=== PATIENT | female | born 1995 | race Hispanic/Latino ===

== ENCOUNTER 2018-03-15 11:42 | Emergency (ER) | payer SELFPAY ==
[2018-03-15] MEDS ORDERED: NA CHLORIDE 0.9% 1,000 ML ONE (12:06)
--- NOTE | 2018-03-15 12:12 | EKG ---
Test Date: 2018-03-15 Test Time: 12:08:11 Finisher Operator: FELI MEASUREMENT RESULTS: Intervals: Rate: 60 ME: 164 QRSD: 76 QT: 416 QTc: 416 Antoine: P: 31 ME: 164 QRS: 31 T: 18 INTERPRETIVE STATEMENTS: Normal sinus rhythm Nonspecific T wave abnormality Abnormal ECG No previous ECG available for comparison Electronically Signed On 03-15-18 12:11:25 CDT by Andrew Serna
[2018-03-15 12:33] LABS: Absolute Lymphocytes (CBC) 2.7 K/uL (0.7-4.9); Absolute Monocytes 0.3 K/uL (0.1-1.3); Absolute Neutrophil 1.9 K/uL (1.8-8.0); Basophils % 0.7 % (0-1.3); Eosinophils % 3.6 % (0-4.4); MCH 30.1 pg (27.0-35.0); MCV 87.5 fL (80-100); MPV 8.5 fL (7.6-11.3); RBC Red Blood Cell Count 4.12 M/uL (3.86-4.86)
[2018-03-15 12:51] LABS: Blood Morphology Comment NOT SEEN (NOT SEEN); Platelet Estimate ADEQ
[2018-03-15 12:55] LABS: BUN Blood Urea Nitrogen 12 mg/dL (7-18); Bicarbonate 28 mmol/L (21-32); Glucose Level 103 mg/dL (74-106); Magnesium 2.1 mg/dL (1.8-2.4); Potassium 3.1 mmol/L (3.5-5.1); Sodium Level 143 mmol/L (136-145)
--- NOTE | 2018-03-15 13:31 | ER ---
Nurse's Notes [facility] Name: Grace Galdamez Age: 22 yrs Sex: Female : 1995 Arrival Date: 03/15/2018 Time: 11:47 Bed 18 Private MD: Diagnosis: Syncope and collapse Presentation: 03/15 11:49 Presenting complaint: EMS states: She has had 2 syncopal episodes today. Patient states aj1 that she has been having these issues for months where she feels really hot, her vision gets blurry, she starts to see white spots and them passes out. EMS reports patient's SBP in the 80's on their arrival. IV was initiated by EMS and after 300cc of NS patient's BP came up to 107. FSBS 101 by EMS. Transition of care: patient was not received from another setting of care. Onset of symptoms was March 15, 2018. Risk Assessment: Do you want to hurt yourself or someone else? Patient reports no desire to harm self or others. Initial Sepsis Screen: Does the patient meet any 2 criteria? No. Patient's initial sepsis screen is negative. Does the patient have a suspected source of infection? No. Patient's initial sepsis screen is negative. Care prior to arrival: None. 11:49 Method Of Arrival: EMS: [facility] aj1 11:49 Acuity: DERICK 3 aj1 Triage Assessment: 11:51 General: Appears in no apparent distress. comfortable, Behavior is calm, cooperative, aj1 appropriate for age. Pain: Denies pain. Neuro: Reports a syncopal episode. Historical: - Allergies: 11:51 No Known Allergies; aj1 - Home Meds: 11:51 None [Active]; aj1 - PMHx: 11:51 None; aj1 - PSHx: 11:51 None; aj1 - Immunization history:: Flu vaccine is not up to date. - Social history:: Smoking status: Patient/guardian denies using tobacco. - Ebola Screening: : Patient denies travel to an Ebola-affected area in the 21 days before illness onset. Screenin:52 Abuse screen: Denies threats or abuse. Denies injuries from another. Nutritional aj1 screening: No deficits noted. Tuberculosis screening: No symptoms or risk factors identified. 14:35 Fall Risk None identified. aj1 Assessment: 11:52 General: Appears in no apparent distress. comfortable, Behavior is calm, cooperative, aj1 appropriate for age. Pain: Denies pain. Neuro: Level of Consciousness is awake, alert, obeys commands, Oriented to person, place, time, situation, Moves all extremities. Full function Speech is normal, Facial symmetry appears normal, Reports a syncopal episode. Cardiovascular: Denies chest pain, shortness of breath, Heart tones S1 S2 present Patient's skin is warm and dry. Rhythm is regular. Respiratory: Airway is patent Respiratory effort is even, unlabored, Respiratory pattern is regular, symmetrical, Breath sounds are clear bilaterally. GI: No signs and/or symptoms were reported involving the gastrointestinal system. : No signs and/or symptoms were reported regarding the genitourinary system. EENT: No signs and/or symptoms were reported regarding the EENT system. Derm: No signs and/or symptoms reported regarding the dermatologic system. Skin is pink, warm \T\ dry. normal. Musculoskeletal: No signs and/or symptoms reported regarding the musculoskeletal system. Circulation, motion, and sensation intact. 12:50 Reassessment: Patient appears in no apparent distress at this time. No changes from aj1 previously documented assessment. Patient and/or family updated on plan of care and expected duration. Pain level reassessed. Patient is alert, oriented x 3, equal unlabored respirations, skin warm/dry/pink. 13:50 Reassessment: Patient appears in no apparent distress at this time. No changes from aj1 previously documented assessment. Patient and/or family updated on plan of care and expected duration. Pain level reassessed. Patient is alert, oriented x 3, equal unlabored respirations, skin warm/dry/pink. 14:32 Reassessment: Patient appears in no apparent distress at this time. No changes from aj1 previously documented assessment. Patient and/or family updated on plan of care and expected duration. Pain level reassessed. Patient is alert, oriented x 3, equal unlabored respirations, skin warm/dry/pink. Vital Signs: 11:51 BP 135 / 95; Pulse 74; Resp 16; Temp 98.0(O); Pulse Ox 100% on R/A; Weight 58.97 kg aj1 (R); Height 5 ft. 0 in. (152.40 cm) (R); 11:51 BP 101 / 73 Supine; Pulse 67; Resp 18; Pulse Ox 99% on R/A; dh3 11:53 BP 108 / 82 Sitting; Pulse 79; Resp 18; Pulse Ox 100% on R/A; dh3 11:55 BP 108 / 78 Standing; Pulse 61; Resp 18; Pulse Ox 99% on R/A; dh3 12:45 BP 113 / 81; Pulse 66; Resp 18; Pulse Ox 99% ; aj1 13:45 BP 104 / 69; Pulse 58; Resp 18; Pulse Ox 98% ; aj1 14:34 BP 106 / 78; Pulse 61; Resp 18; Pulse Ox 99% on R/A; aj1 11:51 Body Mass Index 25.39 (58.97 kg, 152.40 cm) aj1 ED Course: 11:47 Patient arrived in ED. aj1 11:48 Alec San PA is PHCP. jr8 11:48 Marty Guillermo MD is Attending Physician. jr8 11:51 Triage completed. aj1 11:51 Arm band placed on Patient placed in an exam room. aj1 11:52 Patient has correct armband on for positive identification. Bed in low position. Call aj1 light in reach. Side rails up X 1. 11:52 No provider procedures requiring assistance completed. aj1 12:01 Lizeth Bingham, RN is Primary Nurse. aj1 12:30 EKG done, by infrastructure technician. reviewed by Alec STEWART. at1 13:30 Oni Dooley MD is Referral Physician. jr8 14:35 IV discontinued, intact, bleeding controlled, No redness/swelling at site. Pressure aj1 dressing applied. Administered Medications: 12:18 Drug: NS 0.9% 1000 ml Route: IV; Rate: 1000 ml; Site: right antecubital; aj1 13:15 Follow up: IV Status: Completed infusion; IV Intake: 1000ml aj1 14:31 Drug: Potassium Chloride 40 mEq Route: PO; aj1 14:32 Follow up: Response: No adverse reaction aj1 Intake: 13:15 IV: 1000ml; Total: 1000ml. aj1 Outcome: 13:30 Discharge ordered by . jr8 14:35 Discharged to home ambulatory. aj1 14:35 Condition: good 14:35 Discharge instructions given to patient, Instructed on discharge instructions, follow up and referral plans. Demonstrated understanding of instructions, follow-up care. 14:36 Patient left the ED. aj1 Signatures: Lizeth Bingham RN RN aj1 Alec San PA PA jr8 Fernanda chamberlain, art history professor [facility] Radha Ridley 3
--- NOTE | 2018-03-15 13:32 | EDPHYS ---
Physician Documentation [facility] Name: Grace Galdamez Age: 22 yrs Sex: Female : 1995 Arrival Date: 03/15/2018 Time: 11:47 Bed 18 Private MD: ED Physician Marty Guillermo HPI: 03/15 11:51 This 22 yrs old Female presents to ER via Unassigned with complaints of jr8 Syncope. 11:51 The patient has experienced syncope, became unresponsive, collapsed. Onset: The jr8 symptoms/episode began/occurred acutely, today. Duration: This was a single episode. Context: occurred at work. Associated injury: The patient did not suffer any apparent associated injury. Associated signs and symptoms: Pertinent positives: blurred vision, dizziness. Current symptoms: Currently, the patient is not experiencing any symptoms, the patient feels back to baseline, no decreased level of consciousness, no confusion, no dysphasia, no headache, no paralysis, no visual changes. The patient has experienced similar episodes in the past, several times. The patient has not recently seen a physician. Patient stated that she has been having syncopal episodes now for the past few months. Stated that she starts to feel hot and then becomes dizzy and has blurred vision. Shortly after will have syncopal episode. Stated that it only happens if she is active and doing something. Never has it happened at rest. Denies chest pain, palpitations, or shortness of breath before, during, or after episodes . Historical: - Allergies: 11:51 No Known Allergies; aj1 - Home Meds: 11:51 None [Active]; aj1 - PMHx: 11:51 None; aj1 - PSHx: 11:51 None; aj1 - Immunization history:: Flu vaccine is not up to date. - Social history:: Smoking status: Patient/guardian denies using tobacco. - Ebola Screening: : Patient denies travel to an Ebola-affected area in the 21 days before illness onset. ROS: 11:51 Eyes: Negative for injury, pain, redness, and discharge, ENT: Negative for injury, jr8 pain, and discharge, Neck: Negative for injury, pain, and swelling, Cardiovascular: Negative for chest pain, palpitations, and edema, Respiratory: Negative for shortness of breath, cough, wheezing, and pleuritic chest pain, Abdomen/GI: Negative for abdominal pain, nausea, vomiting, diarrhea, and constipation, Back: Negative for injury and pain, MS/Extremity: Negative for injury and deformity, Skin: Negative for injury, rash, and discoloration. 11:51 Neuro: Positive for dizziness, syncope, visual changes. Exam: 11:51 Head/Face: Normocephalic, atraumatic. Eyes: Pupils equal round and reactive to light, jr8 extra-ocular motions intact. Lids and lashes normal. Conjunctiva and sclera are non-icteric and not injected. Cornea within normal limits. Periorbital areas with no swelling, redness, or edema. ENT: Nares patent. No nasal discharge, no septal abnormalities noted. Tympanic membranes are normal and external auditory canals are clear. Oropharynx with no redness, swelling, or masses, exudates, or evidence of obstruction, uvula midline. Mucous membranes moist. Neck: Trachea midline, no thyromegaly or masses palpated, and no cervical lymphadenopathy. Supple, full range of motion without nuchal rigidity, or vertebral point tenderness. No Meningismus. Chest/axilla: Normal chest wall appearance and motion. Nontender with no deformity. No lesions are appreciated. Cardiovascular: Regular rate and rhythm with a normal S1 and S2. No gallops, murmurs, or rubs. Normal PMI, no JVD. No pulse deficits. Respiratory: Lungs have equal breath sounds bilaterally, clear to auscultation and percussion. No rales, rhonchi or wheezes noted. No increased work of breathing, no retractions or nasal flaring. Abdomen/GI: Soft, non-tender, with normal bowel sounds. No distension or tympany. No guarding or rebound. No evidence of tenderness throughout. Back: No spinal tenderness. No costovertebral tenderness. Full range of motion. Skin: Warm, dry with normal turgor. Normal color with no rashes, no lesions, and no evidence of cellulitis. MS/ Extremity: Pulses equal, no cyanosis. Neurovascular intact. Full, normal range of motion. Neuro: Awake and alert, GCS 15, oriented to person, place, time, and situation. Cranial nerves II-XII grossly intact. Motor strength 5/5 in all extremities. Sensory grossly intact. Cerebellar exam normal. Normal gait. Vital Signs: 11:51 BP 135 / 95; Pulse 74; Resp 16; Temp 98.0(O); Pulse Ox 100% on R/A; Weight 58.97 kg aj1 (R); Height 5 ft. 0 in. (152.40 cm) (R); 11:51 BP 101 / 73 Supine; Pulse 67; Resp 18; Pulse Ox 99% on R/A; dh3 11:53 BP 108 / 82 Sitting; Pulse 79; Resp 18; Pulse Ox 100% on R/A; dh3 11:55 BP 108 / 78 Standing; Pulse 61; Resp 18; Pulse Ox 99% on R/A; dh3 12:45 BP 113 / 81; Pulse 66; Resp 18; Pulse Ox 99% ; aj1 13:45 BP 104 / 69; Pulse 58; Resp 18; Pulse Ox 98% ; aj1 14:34 BP 106 / 78; Pulse 61; Resp 18; Pulse Ox 99% on R/A; aj1 11:51 Body Mass Index 25.39 (58.97 kg, 152.40 cm) [facility] MDM: 11:48 Patient medically screened. [facility] 13:30 Data reviewed: vital signs, nurses notes, lab test result(s), EKG, and as a result, I 8 will discharge patient. Data interpreted: Pulse oximetry: on room air is 99 %. Interpretation: normal. Counseling: I had a detailed discussion with the patient and/or guardian regarding: the historical points, exam findings, and any diagnostic results supporting the discharge/admit diagnosis, lab results, the need for outpatient follow up, a bilingual executive assistant, to return to the emergency department if symptoms worsen or persist or if there are any questions or concerns that arise at home. Response to treatment: the patient's symptoms have resolved after treatment, patient is well hydrated. 13:31 Differential Diagnosis: cardiac arrhythmia, drug effect, emotional response, GI bleed, jr8 idiopathic syncope, , seizure, vasovagal episode, POTS syndrome, metabolic process . 03/15 11:48 Order name: Basic Metabolic Panel [facility] 03/15 11:48 Order name: CBC with Diff [facility] 03/15 11:48 Order name: Magnesium [facility] 03/15 11:48 Order name: TSH [facility] 03/15 11:48 Order name: T4 Free [facility] 03/15 12:35 Order name: CBC with Automated Diff; Complete Time: 13:07 EDMS 03/15 11:48 Order name: EKG; Complete Time: 11:49 [facility] 03/15 12:51 Order name: Manual Differential; Complete Time: 13: [facility] 03/15 12:55 Order name: Basic Metabolic Panel; Complete Time: 13: [facility] 03/15 12:55 Order name: T4 Free; Complete Time: 13: [facility] 03/15 12:55 Order name: Magnesium; Complete Time: 13: [facility] 03/15 12:55 Order name: Thyroid Stimulating Hormone; Complete Time: 13: [facility] 03/15 11:48 Order name: Urine Test (obtain specimen); Complete Time: 14:31 [facility] 03/15 11:48 Order name: IV Saline Lock; Complete Time: 11:59 [facility] 03/15 11:48 Order name: Labs collected and sent; Complete Time: 12:19 [facility] 03/15 11:48 Order name: Urine Dipstick-Ancillary (obtain specimen); Complete Time: 14:31 [facility] 03/15 11:48 Order name: EKG - Nurse/Tech; Complete Time: 12:19 [facility] 03/15 11:48 Order name: Orthostatics; Complete Time: 11:57 jr8 Administered Medications: 12:18 Drug: NS 0.9% 1000 ml Route: IV; Rate: 1000 ml; Site: right antecubital; aj1 13:15 Follow up: IV Status: Completed infusion; IV Intake: 1000ml aj1 14:31 Drug: Potassium Chloride 40 mEq Route: PO; aj1 14:32 Follow up: Response: No adverse reaction aj1 Disposition: 18:41 Co-signature as Attending Physician, Marty Guillermo MD. rn Disposition: 03/15/18 13:30 Discharged to Home. Impression: Syncope and collapse. - Condition is Stable. - Discharge Instructions: Syncope, Tilt Table Test, Cardiac Event Monitoring. - Medication Reconciliation Form, Thank You Letter, Antibiotic Education, Prescription Opioid Use form. - Follow up: Oni Dooley MD; When: 5 - 6 days; Reason: Recheck today's complaints, Continuance of care, Re-evaluation by your physician. - Problem is new. - Symptoms have improved. Signatures: Dispatcher [employer] Lizeth Hayes RN RN aj1 Marty Guillermo MD MD rn Roszak, Josh, PA PA jr8 Corrections: (The following items were deleted from the chart) 14:36 13:30 03/15/2018 13:30 Discharged to Home. Impression: Syncope and collapse. Condition aj1 is Stable. Forms are Medication Reconciliation Form, Thank You Letter, Antibiotic Education, Prescription Opioid Use. Follow up: Oni Dooley; When: 5 - 6 days; Reason: Recheck today's complaints, Continuance of care, Re-evaluation by your physician. Problem is new. Symptoms have improved. jr8
[2018-03-15] MEDS ORDERED: POTASSIUM CL SA 10 MEQ TAB PO ONE (13:42)
== END 2018-03-15 14:36 | disposition home or self-care (01) ==
LOC: ER 11:42
DX: R55 Syncope and collapse (principal)
CPT/HCPCS: 36415; 80048; 83735; 84439; 84443; 85025; 93005; 96360; 99284; J7030

== ENCOUNTER → 2023-08-15 | Emergency (ER) | payer SELFPAY ==
[~2023-08-15] MED LIST: KETOROLAC 30 MG/ML INJ ONE; predniSONE 20 MG TAB ONE
--- NOTE | 2023-08-15 12:00 | ER ---
Nurse's Notes [facility] Name: Grace Galdamez Age: 28 yrs Sex: Female : 1995 Arrival Date: 08/15/2023 Time: 11:28 Bed 20 Private MD: Diagnosis: Lumbago with sciatica, right side Presentation: 08/15 11:35 Chief complaint: Low back pain x 1 week, started to radiate to right outer thigh hb yesterday. Coronavirus screen: At this time, the client does not indicate any symptoms associated with coronavirus-19. Ebola Screen: No symptoms or risks identified at this time. Initial Sepsis Screen: Does the patient meet any 2 criteria? No. Patient's initial sepsis screen is negative. Does the patient have a suspected source of infection? No. Patient's initial sepsis screen is negative. Risk Assessment: Do you want to hurt yourself or someone else? Patient reports no desire to harm self or others. Onset of symptoms was August 09, 2023. 11:35 Method Of Arrival: Ambulatory hb 11:35 Acuity: DERICK 4 hb Historical: - Allergies: 11:36 No Known Allergies; hb - Home Meds: 11:36 None [Active]; hb - PMHx: 11:36 None; hb - PSHx: 11:36 None; hb - Immunization history:: Adult Immunizations up to date, Client reports receiving the 2nd dose of the Covid vaccine, Flu vaccine is not up to date. It has been more than one year since last vaccine. - Social history:: Smoking status: Patient denies any tobacco usage or history of. Screenin:45 [facility] ED Fall Risk Assessment (Adult) Score/Fall Risk Level 0 - 2 = Low Risk hb Oriented to surroundings, Maintained a safe environment, Educated pt \T\ family on fall prevention, incl call for assistance when getting out of bed. Abuse screen: Denies threats or abuse. Denies injuries from another. Nutritional screening: No deficits noted. Tuberculosis screening: No symptoms or risk factors identified. Assessment: 11:40 General: Appears in no apparent distress. Behavior is calm, cooperative. Pain: Pain hb currently is 9 out of 10 on a pain scale. Neuro: Level of Consciousness is awake, alert, obeys commands, Oriented to person, place, time, situation. Cardiovascular: Patient's skin is warm and dry. Respiratory: Respiratory effort is even, unlabored, Respiratory pattern is regular, symmetrical. GI: No signs and/or symptoms were reported involving the gastrointestinal system. : No signs and/or symptoms were reported regarding the genitourinary system. EENT: No signs and/or symptoms were reported regarding the EENT system. Derm: Skin is pink, warm \T\ dry. Musculoskeletal: Reports low back pain that radiates to right leg. 12:41 Reassessment: Patient appears in no apparent distress at this time. Patient and/or hb family updated on plan of care and expected duration. Pain level reassessed. Patient is alert, oriented x 3, equal unlabored respirations, skin warm/dry/pink. Vital Signs: 11:35 BP 121 / 74; Pulse 65; Resp 16; Temp 98.1(O); Pulse Ox 100% on R/A; Weight 63.5 kg; hb Height 5 ft. 0 in. ; Pain 9/10; 11:35 Body Mass Index 27.34 (63.50 kg, 152.4 cm) hb 11:35 Pain Scale: Adult hb ED Course: 11:32 Patient arrived in ED. im 11:34 Klever Matthews MD is Attending Physician. ec2 11:36 Triage completed. hb 11:37 Arm band placed on. hb 11:45 Patient has correct armband on for positive identification. Provided Education on: hb tests, result times, medications. 11:45 No provider procedures requiring assistance completed. Patient did not have IV access hb during this emergency room visit. Administered Medications: No medications were administered Medication: 11:45 VIS not applicable for this client. hb Outcome: 11:59 Discharge ordered by . ec2 12:42 Discharged to home ambulatory, hb 12:42 Condition: stable 12:42 Discharge instructions given to patient, Instructed on discharge instructions, follow up and referral plans. medication usage, Demonstrated understanding of instructions, follow-up care, medications, Prescriptions given X 1, 12:43 Patient left the ED. hb Signatures: Kamilah Chow, RN RN Digna Rivera Klever Matthews MD MD ec2 Corrections: (The following items were deleted from the chart) 11:37 11:36 PMHx: Unable to Obtain; hb hb
--- NOTE | 2023-08-15 12:00 | EDPHYS ---
Physician Documentation [facility] Name: Grace Galdamez Age: 28 yrs Sex: Female : 1995 Arrival Date: 08/15/2023 Time: 11:28 Bed 20 Private MD: ED Physician Klever Matthews HPI: 08/15 11:54 This 28 yrs old Female presents to ER via Ambulatory with complaints of Low ec2 Back Pain. 11:54 Patient arrives today for evaluation of low back pain. States that she believes she ec2 strained it. States that she has been having pain for approximately 2 weeks, states it has progressively been getting better however now with worsening after she was doing some lifting in the morning yesterday. Patient reports no falls or injuries, no trauma. Denies any red flag symptoms, denies any previous spinal cord issues.. Historical: - Allergies: 11:36 No Known Allergies; hb - Home Meds: 11:36 None [Active]; hb - PMHx: 11:36 None; hb - PSHx: 11:36 None; hb - Immunization history:: Adult Immunizations up to date, Client reports receiving the 2nd dose of the Covid vaccine, Flu vaccine is not up to date. It has been more than one year since last vaccine. - Social history:: Smoking status: Patient denies any tobacco usage or history of. ROS: 11:54 Constitutional: as per hpi ec2 Exam: 11:54 Constitutional: GEN: NAD Head: atraumatic Eyes: EOMI Ears: External ears are ec2 normal. CV: regular rate LUNGS: no respiratory distress ABD: non-distended SKIN: no evidence of rashes MSK: no evidence of trauma, right lateral low back TTP, positive right-sided straight leg raise test. NEURO: moves all extremities equally, strength intact in the bilateral lower extremities, sensation intact as well. Vital Signs: 11:35 BP 121 / 74; Pulse 65; Resp 16; Temp 98.1(O); Pulse Ox 100% on R/A; Weight 63.5 kg; hb Height 5 ft. 0 in. ; Pain 9/10; 11:35 Body Mass Index 27.34 (63.50 kg, 152.4 cm) hb 11:35 Pain Scale: Adult hb MDM: 11:53 Patient medically screened. ec2 11:56 Data reviewed: vital signs, nurses notes. ED course: Patient arrives today for ec2 evaluation of lower back pain. Examination remarkable for positive right-sided straight leg raise test, minimal TTP to the right lateral low back. No deformities or crepitus appreciated. Intact bilateral lower extremity strength. Presentation consistent with sciatica. Do not feel that lab work will be beneficial in this setting, low suspicion for UTI or pyelonephritis, low suspicion for fracture, accordingly do not feel a CT scan of the L-spine will be appropriate. Will discharge home medication for Robaxin and have follow-up with primary care doctor. Return precautions given. Administered Medications: No medications were administered Disposition Summary: 08/15/23 11:59 Discharge Ordered Notes: Location: Home ec2 Condition: Stable ec2 Diagnosis - Lumbago with sciatica, right side ec2 Followup: ec2 - With: Private Physician - When: - Reason: Recheck today's complaints Discharge Instructions: - Discharge Summary Sheet ec2 - Sciatica ec2 Forms: - Work release form eb - Medication Reconciliation Form ec2 - Thank You Letter ec2 - Antibiotic Education ec2 - Prescription Opioid Use ec2 - Patient Portal Instructions ec2 - Leadership Thank You Letter ec2 Prescriptions: - methocarbamol 500 mg Oral tablet - take 2 tablets ORAL route 4 times per day; 20 tablet; Refills: 0, Product ec2 Selection Permitted Signatures: Kamilah Chow RN RN hb Corral, Edwin, MD MD ec2 Corrections: (The following items were deleted from the chart) 11:37 11:36 PMHx: Unable to Obtain; hb hb 11:57 11:54 Constitutional: Patient arrives today for evaluation of lower back pain. ec2 Examination remarkable for positive right-sided straight leg raise test, minimal TTP to the right lateral low back. No deformities or crepitus appreciated. Intact bilateral lower extremity strength. Presentation consistent with sciatica. Do not feel that lab work will be beneficial in this setting, low suspicion for UTI or pyelonephritis, low suspicion for fracture, accordingly do not feel a CT scan of the L-spine will be appropriate. Will discharge home medication for Robaxin and have follow-up with primary care doctor. Return precautions given ec2
[2023-08-15 13:26] VITALS: BP 121/74; TEMP 98.1; O2SAT 100
== END ==
LOC: ER 11:28
DX: M54.41 Lumbago with sciatica, right side (principal)
CPT/HCPCS: 99283; J7512